=== PATIENT | female | born 1990 | race Caucasian/White ===

== ENCOUNTER 2020-10-24 20:44 | Emergency (ER) | payer OTHER ==
[~2020-10-24] VITALS: Ht 175.3 cm; Wt 63.5 kg
--- NOTE | 2020-10-24 20:54 | NUR ---
BLOOD DRAWN AND SENT TO LAB
--- NOTE | 2020-10-24 20:54 | NUR ---
PT TANISHA C/O SUICIDAL IDEATION. PER EMS, PT TEXTED HER FATHER IN [place] THAT SHE WANTED TO KILL HERSELF. PT UNCOOPERATIVE, YELLING, AND NOT ANSWERING QUESTIONS. PT ATTACHED TO MONITOR AND POX. PT HAS SITTER FOR SAFETY. LEFT HAND 20G IV INITIATED. PT GIVEN BLANKET AND CALL LIGHT WITHIN REACH. WILL CONTINUE TO MONITOR.
[2020-10-24] MEDS ORDERED: HALOPERIDOL LACTATE INJ 5 MG/ML VIAL ONE (21:05)
[2020-10-24] MEDS ORDERED: diphenhydrAMINE HCL 50 MG/ML VIAL ONE (21:06)
[2020-10-24] MEDS ORDERED: LORAZEPAM INJ 2 MG/ML VIAL ONE (21:06)
[2020-10-24 21:15] LABS: BASOPHILS % (AUTO) 0.2 % (0.0-2.0); EOSINOPHILS % (AUTO) 1.5 % (0.0-6.0); HEMATOCRIT 38 % (33-45); LYMPHOCYTES # (AUTO) 3.8 /CMM (0.8-4.8); LYMPHOCYTES % (AUTO) 37.2 % (20.0-44.0); MEAN CORPUSCULAR HGB CONC 34 g/dl (31.0-36.0); MEAN CORPUSCULAR VOLUME 92 fL (82-100); MONOCYTES # (AUTO) 0.9 /CMM (0.1-1.30); MONOCYTES % (AUTO) 8.3 % (2.0-12.0); NEUTROPHILS # (AUTO) 5.4 /CMM (1.8-8.9); NEUTROPHILS % (AUTO) 52.8 % (43.0-81.0); PLATELET COUNT (AUTO) 290 /CMM (150-450); WHITE BLOOD COUNT (AUTO) 10.3 K/uL (4.3-11.0)
[2020-10-24] MEDS ORDERED: diphenhydrAMINE HCL 50 MG/ML VIAL IM ONE (21:30)
[2020-10-24] MEDS ORDERED: HALOPERIDOL LACTATE INJ 5 MG/ML VIAL IM ONE (21:30)
[2020-10-24] MEDS ORDERED: LORAZEPAM INJ 2 MG/ML VIAL IM/IV ONE (21:30)
[2020-10-24] MEDS ORDERED: IV NS 0.9% 1,000 ML BAG IV ONE (21:30)
--- NOTE | 2020-10-24 21:53 | NUR ---
URINE OBTAINED AND SENT TO LAB
[2020-10-24 21:55] LABS: ALANINE AMINOTRANSFERASE 21 U/L (12-78); ALBUMIN 4.2 g/dL (3.4-5.0); ALCOHOL, BLOOD 410 mg/dL (0-0); ALKALINE PHOSPHATASE 63 U/L (46-116); ASPARTATE AMINOTRANSFERASE 24 U/L (15-37); BILIRUBIN,DIRECT 0.1 mg/dL (0.0-0.2); BILIRUBIN,TOTAL 0.2 mg/dL (0.2-1.0); CALCIUM, SERUM 8.5 mg/dL (8.5-10.1); CARBON DIOXIDE 27 mmol/L (21-32); CHLORIDE 105 mmol/L (98-107); CREATININE 0.7 mg/dL (0.6-1.3); GLUCOSE 95 mg/dL (74-106); POTASSIUM 3.8 mmol/L (3.5-5.1); SODIUM SERUM 144 mmol/L (136-145); UREA NITROGEN, BLOOD 11 mg/dL (7-18)
[2020-10-24 21:56] LABS: ACETAMINOPHEN < 2 ug/ml (10-30)
[2020-10-24 22:07] LABS: BILIRUBIN,URINE Negative (NEGATIVE); COLOR,URINE YELLOW (YELLOW); LEUKOCYTE ESTERASE ,URINE Trace (NEGATIVE); NITRITE, URINE Negative (NEGATIVE); PROTEIN,URINE 30 mg/dl (NEGATIVE); UGLUCOSE Negative (NEGATIVE); UROBILINOGEN,URINE 0.2 EU/dL (0.2)
[2020-10-24 22:35] LABS: BACTERIA,URINE Few /HPF (None Seen); SQUAMOUS EPITHELIAL CELL,UR Few /HPF (None Seen)
--- NOTE | 2020-10-25 00:18 | NUR ---
COVID SWAB SENT
[2020-10-25] MEDS ORDERED: HALOPERIDOL LACTATE INJ 5 MG/ML VIAL ONE (01:42)
[2020-10-25] MEDS ORDERED: HALOPERIDOL LACTATE INJ 5 MG/ML VIAL IM ONE (02:00)
--- NOTE | 2020-10-25 08:37 | NUR ---
ART CALLED NEEDS TO GO TO [place] FIRST.
[2020-10-25] MEDS ORDERED: IBUPROFEN 600 MG TABLET ONE (08:58)
[2020-10-25] MEDS ORDERED: IBUPROFEN 600 MG TABLET PO ONE (09:00)
--- NOTE | 2020-10-25 11:02 | NUR ---
ART [employer]IOR [employer]ESSOR AT BEDSIDE FOR PSYCH EVAL.
--- NOTE | 2020-10-25 11:35 | NUR ---
PROVIDED W/ MEAL TRAY. STABLE VITALS.
--- NOTE | 2020-10-25 12:46 | NUR ---
PT IS MEDICALLY AND PSYCH CLEARED. IV D/C'D. DENIES SI/HI. DISCHARGE HOME IN STABLE CONDITION.
[2020-10-25 12:48] VITALS: BP 122/81
== END 2020-10-25 12:49 | disposition home or self-care (01) ==
LOC: ER 20:44
DX: F10.129 Alcohol abuse with intoxication, unspecified (principal); Y90.8 Blood alcohol level of 240 mg/100 ml or more; R45.1 Restlessness and agitation; R45.851 Suicidal ideations; Z20.822 Contact with and (suspected) exposure to COVID-19
CPT/HCPCS: 36415; 80048; 80076; 80299; 80307; 80320; 81001; 85025; 87426; 96360; 96372 ×3; 99291; C9803; J1200; J1630 ×2; J2060; J7030; G0480